=== PATIENT | male | born 1980 | race Caucasian/White ===

== ENCOUNTER 2018-02-21 13:00 | Inpatient (IN) | payer BC ==
[2018-03-12] MEDS ORDERED: CEFAZOLIN 2 Gram 2 GM/50 ML BAG IVPB ONE (06:00)
[2018-03-12] MEDS ORDERED: MECLIZINE 25 MG TABLET PO ONE (06:00)
[2018-03-12] MEDS ORDERED: FAMOTIDINE 20MG TABLET PO ONE (06:00)
[2018-03-12] MEDS ORDERED: VANCOMYCIN HCL 1,000 MG in DEXTROSE 5 % IN WATER 250 ML IVPB ONE ×2 (06:00)
[2018-03-12] MEDS ORDERED: CELECOXIB 100 MG CAPSULE PO ONE (06:00)
[2018-03-12] MEDS ORDERED: METOCLOPRAMIDE 10 MG TABLET PO ONE (06:00)
[2018-03-12 09:07] LABS: ABO GROUP A; ANTIBODY SCREEN NEGATIVE (NEGATIVE); RH TYPE POSITIVE
[2018-03-12] MEDS ORDERED: ACETAMINOPHEN W/ CODEINE 300MG/60MG TABLET PO PRN ×2 (12:46)
[2018-03-12] MEDS ORDERED: HYDROCODONE/APAP 10/325 TABLET PO PRN (12:46)
[2018-03-12] MEDS ORDERED: MAGNESIUM HYDROXIDE 30 ML UDC PO PRN (12:46)
[2018-03-12] MEDS ORDERED: ZOLPIDEM TARTRATE 5 MG TABLET PO PRN (12:46)
[2018-03-12] MEDS ORDERED: NALOXONE 0.4 MG/1 ML VIAL IVP PRN (12:46)
[2018-03-12] MEDS ORDERED: AL HYDROX/MAG HYDROX 30ML UD PO PRN (12:46)
[2018-03-12] MEDS ORDERED: ACETAMINOPHEN 325 MG TAB PO PRN (12:46)
[2018-03-12] MEDS ORDERED: ONDANSETRON HCL IV 4 MG/2 ML VIAL IVP PRN (12:46)
[2018-03-12] MEDS ORDERED: BISACODYL 10 MG SUPP RC PRN (12:46)
[2018-03-12] MEDS ORDERED: KETOROLAC 30 MG/ML VIAL IVP PRN ×2 (12:46)
[2018-03-12] MEDS ORDERED: PROPOFOL 10 MG/ML VIAL IV ONE (14:00)
[2018-03-12] MEDS ORDERED: MIDAZOLAM HCL 2MG/2ML VIAL IV ONE (14:00)
[2018-03-12] MEDS ORDERED: LIDOCAINE 2% MDV (20MG/ML) 20ML VIAL IV ONE (14:00)
[2018-03-12] MEDS: HYDROCODONE/APAP 10/325 TABLET PO PRN ×3 (14:05→22:40)
[2018-03-12] MEDS ORDERED: TRANEXAMIC ACID 1,000 MG/10 ML ML IV ONE (16:03)
[2018-03-12] MEDS ORDERED: BUPIVACAINE 0.5% W/EPI MPF 30 ML VIAL IVP ONE (16:03)
--- NOTE | 2018-03-12 16:27 | Rehab Evaluation ---
Patient Information - Patient Information Diagnosis: OA R hip Ordered Treatment: PT Evaluate and Treat Status: Initial Evaluation Surgery: Yes (R THR) Date of Surgery: 03/12/18 Past Medical/Surgical Hx: PAST MEDICAL/SURGICAL HISTORY Past Surgical History right hip sx age 7 x's 2 left knee sx closed reduction right wrist wisdom teeth PMH - Respiratory Hx Respiratory Disorders Yes Hx of URI Yes: has cold right now Hx of Productive Cough Yes: non productive PMH - Cardiovascular Hx Cardiovascular Disorders No Exercise Tolerance Good PMH - Neuro Hx Neurological Disorders Yes Hx Headaches Yes: occassionally PMH - GI Hx Gastrointestinal Disorders Yes Hx Gastroesophageal Reflux Yes: once in a while PMH - Hx Genitourinary Disorders No PMH - Endocrine Hx Endocrine Disorders No PMH - Musculoskeletal Hx Musculoskeletal Disorders Yes Hx Arthritis Yes: hips PMH - Psych Hx Psychiatric Problems No PMH - Hematology/Oncology Hx Hematology/Oncology No Disorders Premorbid Status: Detail (The patient was independent with all mobility prior to surgery with functional limitations.) Social History: Detail (The patient lives with spouse in a one story house with 4 steps at the enterance. The patient's bathroom is equipped with tub/shower combination , shower seat and standard height toilet. Patient also has a commode. No grab bars were present in the bathroom. The patient has a standard walker, standard cane, crutches and sock aide.) Precautions: [place], Fall, Other (THR precautions) - Time With Patient Total Time Spent With Patient (Min): 25 Treatment Procedures: Detail (Initial Evaluation, gait training) Subjective Information - Subjective Information Per Patient (The patient had complaints of pain with movement of R hip at times but did not rate his pain using 0-10 pain scale.) Objective Data - Mental Status Patient Orientation: Oriented x3 - Visual Perception Appears within normal limits for therapeutic activities - ROM Not within normal limits (The patient's R hip is within THR precautions. All other LE AROM is WNL.) - Strength/Tone Not within normal limits (The patient's R LE strength was not tested due to s/p surgery however was functional. The patient's L LE strength was WFL.) - Bed Mobility Needs Assist (The patient required minimal PA to lift R LE with supine to and from sit transfer. The patient was independent with scooting up in bed.) - Transfers Independent (The patient was independent with sit to and from stand transfer.) - Balance Balance Sitting: Good Balance Standing: Good - Sensation Intact - Gait Detail (The patient ambulated with standard walker a distance of 50 feet x 1, WBAT on R LE with supervision for safety only.) Therapy Assessment - Therapy Assessment Detail (The patient required minimal assist with bed mobility and was independent/supervision with ambulation and transfers. Feel the patient will progress well with mobility.) Patient Education - Patient Education Teaching Topic: Precautions (Patient was able to verbalize THR precautions.) Response: Verbalize Understanding Teaching Method: Discussion Teaching Recipient: Patient Barriers To Learning: None Problem List - Problem List Physical Therapy Problem List: Detail (1) Decreased R LE strength as to be expected following surgery 2) Assistance with bed mobility) Goals - Goals Physical Therapy Goals: 1) The patient will be independent with HEP of THR exercises. 2) The patient will be independent with bed mobility. 3) The patient will ambulate on stairs with supervision for safety using proper technique. Prognosis - Prognosis Good Plan - Plan Physical Therapy Plan: PT 1-2 session for gait training, transfer training, instruction in HEP.
[2018-03-12] MEDS: CEFAZOLIN 2 Gram 2 GM/50 ML BAG IVPB SCH (18:27)
[2018-03-12] MEDS: POTASSIUM CHLORIDE/D5-0.9%NACL 20 MEQ/1,000 ML BAG IV SCH ×2 (21:00→22:43)
[2018-03-12] MEDS: DIPHENHYDRAMINE HCL 25 MG CAPSULE PO PRN (22:38)
[2018-03-12] MEDS: DOCUSATE SODIUM 100 MG CAPSULE PO SCH (22:38)
[2018-03-13] MEDS: HYDROMORPHONE HCL 2 MG/ML VIAL IM PRN ×2 (00:11→14:05)
[2018-03-13] MEDS: HYDROCODONE/APAP 10/325 TABLET PO PRN ×3 (02:14→11:31)
[2018-03-13] MEDS: DIPHENHYDRAMINE HCL 25 MG CAPSULE PO PRN (02:14)
[2018-03-13] MEDS: CEFAZOLIN 2 Gram 2 GM/50 ML BAG IVPB SCH ×2 (02:15→09:40)
[2018-03-13] MEDS: POTASSIUM CHLORIDE/D5-0.9%NACL 20 MEQ/1,000 ML BAG IV SCH ×2 (05:30→13:59)
[2018-03-13 06:56] LABS: HEMOGLOBIN 13.5 gm/dl (14.0-18.0)
[2018-03-13 07:04] LABS: BLOOD UREA NITROGEN 8 mg/dL (6-20); EST GLOMERULAR FILTRATION RATE > 60 mL/min; GLUCOSE,RANDOM 111 mg/dL (74-109)
--- NOTE | 2018-03-13 07:40 | RADIOLOGY REPORT ---
EXAM: RIGHT HIP HISTORY: OSTEOARTHRITIS RESULTING FROM RIGHT HIP DYSPLASIA. TECHNIQUE: A single frontal portable view of the right hip was obtained. Comparison: None. FINDINGS: Right hip arthroplasty components appear in expected alignment on this single view study. Cerclage wire noted at the proximal femur near the trochanters. Lateral skin jeremias. Adjacent soft tissue emphysema compatible with recent surgery. Cortical irregularity at the base of the greater trochanter laterally; correlation with preoperative radiographs is recommended. IMPRESSION: ABOVE. JOB NUMBER: [id number] [facility]
--- NOTE | 2018-03-13 08:30 | Rehab Evaluation ---
Patient Information - Patient Information Diagnosis: DJD right hip Ordered Treatment: OT Evaluate and Treat Status: Initial Evaluation Surgery: Yes (R THR) Date of Surgery: 03/12/18 Past Medical/Surgical Hx: PAST MEDICAL/SURGICAL HISTORY Past Surgical History right hip sx age 7 x's 2 left knee sx closed reduction right wrist wisdom teeth PMH - Respiratory Hx Respiratory Disorders Yes Hx of URI Yes: has cold right now Hx of Productive Cough Yes: non productive PMH - Cardiovascular Hx Cardiovascular Disorders No Exercise Tolerance Good PMH - Neuro Hx Neurological Disorders Yes Hx Headaches Yes: occassionally PMH - GI Hx Gastrointestinal Disorders Yes Hx Gastroesophageal Reflux Yes: once in a while PMH - Hx Genitourinary Disorders No PMH - Endocrine Hx Endocrine Disorders No PMH - Musculoskeletal Hx Musculoskeletal Disorders Yes Hx Arthritis Yes: hips PMH - Psych Hx Psychiatric Problems No PMH - Hematology/Oncology Hx Hematology/Oncology No Disorders Premorbid Status: Detail (The patient was independent with all mobility prior to surgery with functional limitations. He and share IADLs and child adolescent care activities.) Social History: Detail (The patient lives with spouse in a one story house with 4 steps at the entrance with 2 railings. The patient's bathroom is equipped with tub/shower combination , shower seat and standard height toilet. Patient also has a commode. No grab bars were present in the bathroom. The patient has a standard walker, standard cane, crutches and sock aide.) Precautions: [place], Fall, Other (THR precautions) - Time With Patient Total Time Spent With Patient (Min): 35 Treatment Procedures: Detail (OT eval low complexity) Subjective Information - Subjective Information Per Patient Objective Data - Pain Pain Present: Yes (-10/23) - Mental Status Patient Orientation: Oriented x3 - Visual Perception Appears within normal limits for therapeutic activities - ROM Within normal limits (Nas UE AROM WNL) - Strength/Tone Within normal limits (Nas UE strength WNL) - Coordination Appears within normal limits for therapeutic activities - Bed Mobility Needs Assist (Min assist to move right leg to EOB during supine to sit.) - Transfers Independent (Ind with sit to stand from EOB.) - Balance Balance Sitting: Good Balance Standing: Good - Sensation Intact - Gait Detail (Pt able to take several steps from EOB to chair with standard walker.) - ADL's/IADL's Detail (Pt educated re: total hip precautions, use of equipment and modified LE dressing techniques. Pt was able to demonstrate donning sweat pants with red leader but reports his family will be available to assist him as he does not have a red leader. He verbalized donning and doffing socks with his sock aid and reports he is confident using this method. He reports he wears slip on "house shoes" and will have family to assist if needed. Reviewed kitchen and shower safety and modifications, pt verbalized understanding.) Therapy Assessment - Therapy Assessment Detail (Pt is Ind with modified LE dressing techniques using equipment.) Problem List - Problem List Physical Therapy Problem List: Detail (1) Decreased R LE strength as to be expected following surgery 2) Assistance with bed mobility) Occupational Therapy Problem List: Detail (No current IP OT problems identified. ) Goals - Goals Physical Therapy Goals: 1) The patient will be independent with HEP of THR exercises. 2) The patient will be independent with bed mobility. 3) The patient will ambulate on stairs with supervision for safety using proper technique. Occupational Therapy Goals: No current IP OT goals identified. Prognosis - Prognosis Good Plan - Plan Physical Therapy Plan: PT 1-2 session for gait training, transfer training, instruction in HEP. Occupational Therapy Plan: No further IP OT recommended. Thank you for this referral.
[2018-03-13] MEDS: DOCUSATE SODIUM 100 MG CAPSULE PO SCH (09:39)
[2018-03-13] MEDS ORDERED: RIVAROXABAN 10 MG TABLET PO SCH (10:00)
[2018-03-13] MEDS ORDERED: FERROUS SULFATE 325 MG TAB PO SCH (10:00)
[2018-03-13] MEDS ORDERED: PROPOFOL 10 MG/ML VIAL IV ONE (11:34)
[2018-03-13] MEDS ORDERED: MIDAZOLAM HCL 2MG/2ML VIAL IV ONE (11:34)
[2018-03-13] MEDS ORDERED: LIDOCAINE 2% MDV (20MG/ML) 20ML VIAL IV ONE (11:34)
--- NOTE | 2018-03-13 12:48 | Physical Therapy Tx Note ---
Physical Therapy Tx Note - Treatment Note Tolerated: Fair Total Time Spent With Patient: 30 Physical Therapy Tx Note: Detail (The patient was in bed when PT arrived. The patient had complaints of level 7 pain in R hip. The patient completed THR exercises including: ankle pumps, gluteal sets, quad sets, hamstring sets, hip abduction with assist and heelslides. The patient's was instructed in how to assist and progress patient's HEP. The patient required minimal PA to lift R LE with sit to supine and was independent with supine to sit. The patient wasin dependent with scooting up in bed. The patient ambulated with standard walker a distance of 60 feet x 1 WBAT on RLE independently. The patient ambulated on 3 steps with use of folded walker and railing using proper technique. The patient's was instructed in proper gaurding technique on stairs. The patient has met all inpatient goals. The patient inconsistently requires minimal assist to move/lift R LE with supine to and from sit which seems to vary with pain level. The patient and his were encouraged to complete bed mobilty independently as it would help imrpve R LE strength.) Physical Therapy Problem List: Detail (1) Decreased R LE strength as to be expected following surgery 2) Assistance with bed mobility) Physical Therapy Goals: 1) The patient will be independent with HEP of THR exercises.(Goal Met). 2) The patient will be independent with bed mobility.( Goal Met with occasional min. assist of R LE). 3) The patient will ambulate on stairs with supervision for safety using proper technique.(Goal Met) Physical Therapy Plan: All inpatient goals have been met. Patient is to continue with Home PT.
--- NOTE | 2018-03-14 15:10 | Discharge Summary ---
DATE OF ADMISSION: 03/12/2018 DATE OF DISCHARGE:03/13/2018 DATE OF SURGERY: 03/12/2018 HISTORY: The patient is a 37-year-old male who presents with arthrosis of his right hip secondary to hip dysplasia. He is admitted after total hip arthroplasty. Postoperatively he did great. His discharge hemoglobin is 13.5 and did not require transfusion. The plan is to discharge him to home in the care of his family. He will be given home PT and visiting nurse. He will be given Modale for pain and Xarelto followed by aspirin for DVT prophylaxis. His sutures will be removed by visiting nurse in 2 weeks. He will follow up in my office in 4 weeks. His discharge condition was good. FINAL DIAGNOSIS/PRIMARY DIAGNOSIS: Arthrosis right hip secondary to dysplasia. OPERATIONS AND PROCEDURES: Hybrid right total hip arthroplasty. PATRICIO
--- NOTE | 2018-03-20 10:51 | Operative Note ---
DATE OF SURGERY: 03/12/2018 PREOPERATIVE DIAGNOSIS: End-stage arthrosis of the right hip secondary to dysplasia. POSTOPERATIVE DIAGNOSIS: End-stage arthrosis of the right hip secondary to dysplasia. OPERATION: 1. Hybrid right total hip arthroplasty using Lancaster and Nephew components with a size 56 no-hole Reflection cup, a size 32 mm diameter 35-degree offset liner, a size 11 cemented Synergy stem with a -3 32 mm diameter Oxinium head. 2. Open reduction and internal fixation of the greater trochanter with a Lancaster and Nephew cable. Surgeon: José Miguel Ross MD Anesthesia: Spinal. PREPARATION: Chloraprep. INDIVIDUAL CONSIDERATIONS: This is not a standard hip replacement. 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 PROCEDURE: The patient was taken to the operating room, placed supine on the operating room table. He had a successful induction with spinal anesthetic. He was then placed on his side right side up, and his right leg and hip were prepped and draped in the usual fashion. The patient had direct posterior approach to the hip. Sharp dissection carried down through skin and subcutaneous tissues. Small veins were coagulated with a Bovie. The tensor gluteal fascia was opened along the entire length of the incision, and deep retractors were placed. Short external rotators were identified, piriformis fossa removed exposing the posterior capsule. I also identified the sciatic nerve. Because of the dysplasia I was worried about its location but it is actually more posterior than normal, so it was clearly out of harm's way. Posterior capsulectomy was performed. Hip was dislocated posteriorly. The patient had a dysplastic hip, quite a bit of shortening, I would say about 2 to 2.5 cm with a dysplastic head. A femoral neck cut was then made with an oscillating saw, and a rim capsulectomy was performed. I started reaming the acetabulum to 45 to try to strike the medial wall and then I reamed to the introitus to a 55 for a 56 cup. The femoral neck cut was then made with an oscillating saw, and a rim capsulectomy was performed. I started reaming the acetabulum to 45 to strike the medial wall and then I reamed to the introitus to a 55 for a 56 cup. I slightly under-reamed to 54 and then impacted a size 56 no-hole Reflection cup in 20 degrees of forward flexion and about 40 degrees of abduction. There was solid cementless fixation. The center cap screw was placed, and after irrigation, I went ahead and impacted a 32 mm diameter 35-degree offset liner with the offset slightly posteriorly to inferiorly. This gave an excellent stable acetabular construct, and this was packed off. The proximal femur was delivered into the wound, and box cutting osteotome was used to remove the proximal metaphyseal bone which was extremely hard. I initially intended to use the [place]bridge system and I started using the initial reamer. I started reaming to maybe a 9 and at a 10 I was starting to feel cortex and I realized that there was just no way I was going to fit this proximally with this distal tightness. I then abandoned this and went over to the Synergy system. I mid stem reamed that to about an 11. During just the reaming process, there was a small crack that occurred in the greater trochanter. I went head and broached to a size 12 which seemed to have relatively solid cementless fixation but I was a little worried that it was not good enough, so I elected to go ahead and cement in an 11. I placed a drill hole through the trochanter to place the cable, which I was going to place underneath the calcar area after getting the implant in. I then prepared the canal after thorough irrigation with bursal brushing and then dry sponging. I then mixed the cement and pressurized the canal and went ahead and cemented the implant in. The most anteversion I could dial in was about 5 degrees because of his deformity. This was an 11 high-offset cemented Synergy stem with good calcar contact, solid cementless fixation. I then was able to secure the trochanter with the cable basically underneath the calcar lip of the prosthesis. This gave excellent stable fixation. I trialed it and found that with a -3, I had solid stability. I could have gone to a standard neck length head but I did not want to really add length because this patient was about 2 to 2.5 cm short and I did not want to put stretch on the sciatic nerve. After thorough irrigation and drying the Herb taper and realizing the -3 head would be appropriate, I dried the Herb taper and impacted a 32 mm diameter Oxinium head on the stem, reduced the hip, and now had solid stability. I had good motion, full anterior stability and full external rotation and extension. I flexed him to 90 degrees, actually up to his abdomen, and then internally rotated even to 90 degrees and still had stability. After irrigation, sciatic nerve was inspected and found to be completely intact and not under any undue tension. The wound was thoroughly irrigated with saline and Betadine. Hemostasis was obtained with a Bovie. I mixed 1 g of tranexamic acid with 30 mL of saline and placed this deep in the fascia and closed the fascia with a running #2 quill. Subcu was closed in layers with running 0 quill, skin was closed with jeremias. Prior to skin closure, I did infiltrate the skin and subcutaneous tissue with 30 mL of 0.5% Marcaine with epinephrine. The patient tolerated the procedure well. Needle and sponge counts were correct. Estimated blood loss was 500 mL. He was taken back to recovery in good conditio MTDD
== END 2018-03-13 16:35 | disposition home health service (06) | DRG 470 ==
LOC: MEDSURG 03-12 08:09
PROVIDERS: ADMIT Orthopaedic Surgery; ATTEND Orthopaedic Surgery
PROC: 0QS606Z Reposition Right Upper Femur with Intramedullary Internal Fixation Device, Open Approach (ICD-10-PCS; 2018-03-12)
PROC: 0SR9069 Replacement of Right Hip Joint with Oxidized Zirconium on Polyethylene Synthetic Substitute, Cemented, Open Approach (ICD-10-PCS; principal; 2018-03-12 10:00)
DX: M16.11 Unilateral primary osteoarthritis, right hip (principal); Q65.89 Other specified congenital deformities of hip
CPT/HCPCS: 80048; 85014; 85018; 86850; 86900; 86901; 97110; C1776; J1885; J2405; J3480